=== PATIENT | male | born 1995 | race Caucasian/White ===

== ENCOUNTER 2019-11-16 00:30 | Emergency (ER) | payer BC ==
[~2019-11-16] VITALS: Ht 188 cm; Wt 106.6 kg
[2019-11-16] MEDS ORDERED: SKYRIZI (00:39)
[2019-11-16] MEDS ORDERED: WAL-PROFEN200 MG PO (00:39)
[2019-11-16] MEDS ORDERED: BACTRIM DS TAB1 EACH PO (02:38)
[2019-11-16 02:43] VITALS: BP 135/84
== END 2019-11-16 02:45 | disposition home or self-care (01) ==
LOC: ER 00:30
DX: L05.01 Pilonidal cyst with abscess (principal)